=== PATIENT | male | born 1965 | race Caucasian/White ===

== ENCOUNTER 2020-05-16 18:54 | Emergency (ER) | payer OTHER, SELFPAY ==
--- NOTE | ~2020-05-16 | XR_ITS ---
XR tibia fibula LT 2V DATE: 05/16/2020 19:26 INDICATION: Swelling; no injury TECHNIQUE: AP and lateral views COMPARISON: None FINDINGS: Chronic bony ossicles are noted anterior to the anterior tibial tuberosity. There is osteoa rthritic change at the knee joint. No fracture, dislocation, periosteal reaction or bone destruction of the tibia or fibula. IMPRESSION: No acute bony findings Reviewed, dictated and finalized at location A. IMPRESSION: No acute bony findings
[2020-05-16 18:58] VITALS: BP 150/86; PULSE 107; RESP 18; TEMP 37.1; O2SAT 98
--- NOTE | 2020-05-16 19:04 | ED.GENADULT ---
HPI - General Adult General Chief complaint: Extremity Injury, Lower Stated complaint: Left Calf Pain and Swelling Time Seen by Provider: 05/16/20 19:04 Source: patient Mode of arrival: ambulatory Limitations: no limitations History of Present Illness HPI narrative: 55-year-old male patient presents to the emergency department with complaints of left leg swelling that started about 2 days ago. Patient states he has been working out recently. Patient states that this is happened before but typically the swelling lasts a couple of days and then it goes away. Patient states he does have pain at times in the calf increases with walking. Patient noticed swelling from the ankle all the way up to the calf area. Denies any history of blood clots before in the past. Patient states he is on no medications and very rarely goes to the hospital or doctor. Patient denies any chest pain or shortness of breath. Patient denies any injury to the lower leg or the ankle that he is aware of. Related Data Home Medications Medication Instructions Recorded Confirmed No Home Medications 05/16/20 05/16/20 Allergies Allergy/AdvReac Type Severity Reaction Status Date / Time No Known Allergies Allergy Verified 05/16/20 19:01 Review of Systems Review of Systems: Narrative: CONSTITUTIONAL: Denies fever, chills, or sweats. EYES: Denies visual changes, redness, or discharge. ENT: Denies rhinorrhea, congestion, sore throat, or otalgia. CARDIOVASCULAR: Denies chest pain, palpitations, or edema. RESPIRATORY: Denies cough or dyspnea. GASTROINTESTINAL: Denies abdominal pain, nausea, vomiting, or diarrhea. GENITOURINARY: Denies dysuria or hematuria. SKIN: Denies rash or itching. MUSCULOSKELETAL: Denies back pain, joint pain, or myalgia. Positive swelling to left ankle and left calf x2 to 3 days NEUROLOGIC: Denies headache, numbness, or weakness. PSYCHIATRIC: Denies anxiety or depression. PMFSH Social History Social History Smoking status: Never smoker Alcohol intake: current Gender identity (if verbalized by the patient): Male Comments At the time of my signature I agree with nursing past medical history, surgical, social, and family history. There is no relevant family history pertinent to the presenting complaint. Exam Narrative: Exam Narrative: GENERAL: Well-appearing, well-nourished, and in no acute distress. HEAD: Normocephalic, atraumatic. EYES: PERRLA and EOMI. ENT: Nares clear, no rhinorrhea or epistaxis. Mucous membranes moist. NECK: Supple. No lymphadenopathy CHEST: Clear to auscultation. No respiratory distress. HEART: Regular rate and rhythm. No murmur heard. Normal peripheral pulses. ABDOMEN: Soft, nontender, nondistended, normal active bowel sounds. EXTREMITIES: Normal range of motion. Patient does have swelling noted to the left lateral and medial malleolus area. There is some swelling noticed to the calf as compared to the right side with warmth noted behind the calf and slight tenderness on palpation. Patient has good range of motion and can walk with a steady gait. SKIN: Warm, dry, no rash. NEURO: No focal deficits. Alert and oriented x3. Course Reevaluation(s) Reevaluation #1: Spoke with Dr. Juma Farrell about patient. Discussed with him that patient does have a positive d-dimer along with left lower leg swelling, redness and pain. Discussed with Dr. Tapia I was going to order a Doppler for him to have tomorrow morning we are can give him a shot of Lovenox before he leaves tonight. Dr. Farrell is aware the plan of care and states that he will follow-up with the patient. Patient has appointment tomorrow morning at 7:30 AM at the imaging center here at the [facility] to obtain his Doppler. Discussed with patient this plan of care and told him that he needs to take his order along with his discharge paper to the appointment tomorrow morning at 730. Patient verbalize
[2020-05-16 19:27] LABS: Basophils Absolute Auto 0.1 K/mm3 (0.0-0.1); Basophils Percent Auto 0.9 % (0.2-1.2); Eosinophils Absolute Auto 0.3 K/mm3 (0-0.3); Eosinophils Percent Auto 2.2 % (0-4.4); Hematocrit 45.3 % (42.0-52.0); Hemoglobin 15.4 g/dL (14.0-18.0); Immature Granulocyte Absolute 0.06 K/mm3 (0.00-0.031); Immature Granulocyte Percent A 0.5 % (0-0.5); Lymphocytes Absolute Auto 1.83 K/mm3 (0.9-3.2); Lymphocytes Percent Auto 15.6 % (18.3-44.2); Mean Corpuscular Hemoglobin 28.5 pg (26-34); Mean Corpuscular Volume 83.9 fl (80-100); Mean Platelet Volume 9.7 fl (7.4-10.4); Monocytes Absolute Auto 1.2 K/mm3 (0.1-0.6); Monocytes Percent Auto 10.2 % (2.6-8.5); Neutrophils Absolute Auto 8.3 K/mm3 (1.3-6.7); Neutrophils Percent Auto 70.6 % (45.5-73.1); Platelet Count Result 176 k/mm3 (150-375); Red Cell Distribution Width 13.4 % (11.5-14.5); White Blood Count 11.7 K/mm3 (4.5-10.0)
[2020-05-16 19:36] LABS: INR 1.1
[2020-05-16 19:37] LABS: Partial Thromboplastin Time 26.5 SECONDS (22.3-36.8)
[2020-05-16 19:39] LABS: Alanine Aminotransferase 57 U/L (4-50); Albumin Level 4.6 g/dL (3.5-5.1); Alkaline Phosphatase 51 U/L (38-126); Aspartate Amino Transferase 53 U/L (17-59); Bilirubin,Total 0.7 mg/dL (0.2-1.3); Blood Urea Nitrogen 28 mg/dL (9-20); Carbon Dioxide 23 mmol/L (22-30); Chloride 106 mmol/L (98-107); Estimated CRCL calculation 57 ml/min; Estimated Glomerular Filt Rate > 60; Glucose 101 mg/dL (75-110); Potassium 4.1 mmol/L (3.4-5.0); Sodium 138 mmol/L (137-145)
[2020-05-16 19:54] LABS: D Dimer 12.74 ug/mL (<0.48)
[2020-05-16] MEDS: ENOXAPARIN 80 MG/0.8 ML SYRINGE 74 MG SUB-Q (20:40)
[2020-05-16 20:42] VITALS: BP 126/85; PULSE 83; O2SAT 97
== END 2020-05-16 20:45 | disposition home or self-care (01) ==
PROVIDERS: Emergency Provider Nurse Practitioner Family; PCP Internal Medicine
DX: R22.42 Localized swelling, mass and lump, left lower limb (principal)
CPT/HCPCS: 36415; 73590; 80053; 85025; 85380; 85610; 85730; 96372; 99284; J1650

== ENCOUNTER 2020-05-17 07:30 | Outpatient (CLI) | payer OTHER, SELFPAY ==
--- NOTE | ~2020-05-17 | US_ITS ---
US venous doppler [facility] DATE: 05/17/2020 08:26 INDICATION: Left leg swelling and pain for 3 days TECHNIQUE: Real-time and color flow imaging and Doppler analysis COMPARISON: None FINDINGS: Intraluminal thrombus is identified within the mid to distal aspect of one of 2 paired supe rficial femoral veins. Intraluminal thrombus is identified within the popliteal vein, gastrocnemius v ein and one of 2 paired peroneal veins. IMPRESSION: Deep venous thrombosis of one of 2 paired superficial femoral and peroneal veins Dr. Jim telephoned the report of left lower extremity deep venous thrombosis on 05/17/2020 at [address] Cline's voicemail. The report was also called by Dr. Jim to Dr. Cline's exchange at [phone] on 05/17/2020 at 084 9 hours. Reviewed, dictated and finalized at Location [facility]. Reviewed, dictated and finalized at location B. IMPRESSION: Deep venous thrombosis of one of 2 paired superficial femoral and p eroneal veins Dr. Jim telephoned the report of left lower extremity deep venous thrombosis o n 05/17/[address] Cline's voicemail. The report was also called by Dr. Jim to Dr. Cline's exchange at [phone] on 05/17/2020 at 0849 hours.
== END 2020-05-17 07:31 | disposition home or self-care (01) ==
PROVIDERS: PCP Internal Medicine; Visit Provider Internal Medicine
DX: I82.412 Acute embolism and thrombosis of left femoral vein (principal); I82.452 Acute embolism and thrombosis of left peroneal vein
CPT/HCPCS: 93971

== ENCOUNTER → 2020-08-16 14:24 | Outpatient (CLI) | payer OTHER, SELFPAY ==
--- NOTE | ~2020-08-16 | MR_ITS ---
EXAMINATION: MR shoulder RT w con DATE: 08/16/2020 16:17 INDICATION: Right shoulder pain and limited range of motion TECHNIQUE: Magnetic resonance imaging (MRI) of the right shoulder was performed following intra-clifton cular gadolinium contrast injection and without intravenous contrast. Details of the glenohumeral arron nt injection have been dictated separately. Sequences included axial T2-weighted FS FSE, axial T1-we ighted FS FSE, coronal oblique T1-weighted FS FSE, coronal oblique T2-weighted FSE, sagittal T2-weigh darryn FS FSE, sagittal T1-weighted FSE, and ABER (abduction external rotation) T1-weighted FS FSE. COMPARISON: None. FINDINGS: Coracoacromial arch: Type II acromion. The coracoacromial ligament is normal. Moderate acromioclavicular osteoarthritis. Rotator cuff: Mild tendinopathy at the conjoined portion of the supraspinatus and infraspinatus tendons without dis crete tear. The teres minor and subscapularis tendons are normal. Normal rotator cuff muscle bulk an d signal. Biceps tendon, glenoid labrum and glenohumeral cartilage: Long head of the biceps tendon is normal. There is a tear of the superior glenoid labrum beginning po steriorly at the 11:30 position and extending anteriorly to approximately 1:00 position of the labrum and further anteriorly as a partial tear of the superior glenohumeral ligament. Cartilage is normal. Bones and other: Subarticular edema at both sides of the acromioclavicular joint. Marrow signal is otherwise normal. N o fracture or pathologic marrow replacing process. Mild increased fluid signal in the subacromial/sub deltoid bursa consistent with minimal bursitis. IMPRESSION: 1. SLAP tear involving the superior glenoid labrum with associated partial tear of the superior gleno humeral ligament. 2. Mild tendinopathy without discrete tear of the conjoined portions of the supraspinatus and infrasp inatus tendons. 3. Moderate acromioclavicular osteoarthritis. 4. Minimal subacromial/subdeltoid bursitis. Reviewed, dictated and finalized at location A. IMPRESSION: 1. SLAP tear involving the superior glenoid labrum with associated partial tear of the superior glenohumeral ligament. 2. Mild tendinopathy without discrete tear of the conjoined portions of the sup raspinatus and infraspinatus tendons. 3. Moderate acromioclavicular osteoarthritis. 4. Minimal subacromial/subdeltoid bursitis.
--- NOTE | ~2020-08-16 | XR_ITS ---
EXAMINATION: XR fl inj shoulder RT - MR/CT EXAM DATE: 08/16/2020 15:39 INDICATION: Intermittent anterior right shoulder pain. No history of dislocation. TECHNIQUE: A time-out was performed to verify the patient's name, date of , and procedure to b e performed. The procedure including the risks, benefits and alternatives were discussed with the pat ient. Risks discussed included bleeding and infection. The patient understood the risks and agreed to proceed. The skin overlying the right shoulder joint was prepped and draped in usual sterile fashion . Anesthetic was administered with 2 milliliters 1% lidocaine subcutaneously. A 22 G needle was adv anced under fluoroscopic guidance into the joint. A total of 10 mL of 1:200 of 529 mg/mL Multihance, 1:4 lidocaine, and 1:4 Omnipaque 240 was instilled. The needle was removed and the entry site was cleaned and dressed. There were no immediate complications. The DAP for this procedure was 0.08 Gy cm2. The procedure was performed on 08/16/2020. FINDINGS: Real-time fluoroscopy demonstrates the needle and contrast in the right shoulder joint. IMPRESSION: Successful right shoulder joint injection. Reviewed, dictated and finalized at location B.
== END ==
PROVIDERS: Visit Provider Internal Medicine
DX: S49.91XA Unspecified injury of right shoulder and upper arm, initial encounter (principal); S43.431A Superior glenoid labrum lesion of right shoulder, initial encounter; M67.813 Other specified disorders of tendon, right shoulder; M19.011 Primary osteoarthritis, right shoulder
CPT/HCPCS: 23350; 73222; 77002; A9577; Q9966

== ENCOUNTER 2022-05-27 22:25 | Emergency (ER) | payer OTHER, SELFPAY ==
--- NOTE | ~2022-05-27 | CT_ITS ---
EXAMINATION: CT abdomen pelvis w con DATE: 05/28/2022 01:04 INDICATION: Low abdominal pain for 3 days TECHNIQUE: Computed tomography (CT) of the abdomen and pelvis was performed with 100 CC Omnipaque 300 intravenous contrast. Automated exposure control and iterative reconstruction technique were employe d. Exam dose: 477.18 mGy-cm total exam DLP. COMPARISON: None. FINDINGS: Minimal dependent atelectasis at the lower lobes. Cardiomegaly. No pericardial or pleural effusion. Occasional small hypodensities of liver too small to definitively characterize. The gallbladder is pr esent. No bile duct dilatation. No pancreatic mass lesion, calcification or ductal dilatation. Normal splenic size. Normal morphology of the adrenal glands. No renal mass lesion or urinary tract calculus or hydroureteronephrosis. Normal caliber of the abdominal aorta. No intraperitoneal or retroperitoneal or pelvic mass lesion or adenopathy. The urinary bladder and prostate gland are unremarkable. Minimal free fluid in the dependent pelvis. No bowel obstruction. There is haziness of the mesentery which may be due to mesenteric panniculitis. Included skeletal structures are unremarkable. 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 Reviewed, dictated and finalized at location A. IMPRESSION: Haziness of the mesenteric fat which suggests mesenteric panniculi tis Occasional small hepatic hypodensities, too small to definitively characterize
[2022-05-27 22:29] VITALS: BP 140/99; PULSE 82; RESP 18; TEMP 36.6; O2SAT 99
[2022-05-27] MEDS: DICYCLOMINE HCL INJ 20 MG/2 ML VIAL IM (23:48)
[2022-05-27] MEDS: ONDANSETRON INJ 4 MG/2 ML VIAL IV PUSH (23:48)
[2022-05-27] MEDS: SODIUM CHLORIDE 0.9% IV 1,000 ML 999 ML IV CONT (23:48)
[2022-05-28 00:08] LABS: Lactic Acid Reflex 0.9 mmol/L (0.7-2.0)
[2022-05-28 00:09] LABS: Alanine Aminotransferase 92 U/L (6-50); Albumin Level 4.5 g/dL (3.5-5.1); Alkaline Phosphatase 73 U/L (38-126); Anion Gap 5 mmol/L (8-16); Aspartate Amino Transferase 45 U/L (17-59); Basophils Absolute Auto 0.1 K/mm3 (0.0-0.1); Basophils Percent Auto 1.1 % (0.2-1.2); Bilirubin,Total 0.6 mg/dL (0.2-1.3); Blood Urea Nitrogen 25 mg/dL (9-20); Calcium 9.2 mg/dL (8.4-10.2); Carbon Dioxide 27 mmol/L (22-30); Chloride 102 mmol/L (98-107); Eosinophils Absolute Auto 0.2 K/mm3 (0-0.3); Eosinophils Percent Auto 2.3 % (0-4.4); Estimated CRCL calculation 60 ml/min; Estimated Glomerular Filt Rate > 60; Glucose 111 mg/dL (65-110); Hematocrit 47.2 % (42.0-52.0); Immature Granulocyte Absolute 0.04 K/mm3 (0.00-0.031); Immature Granulocyte Percent A 0.4 % (0-0.5); Lipase 88 U/L (23-300); Lymphocytes Percent Auto 14.6 % (18.3-44.2); Mean Corpuscular HGB Conc 33.9 g/dl (32-36); Mean Corpuscular Hemoglobin 28.5 pg (26-34); Monocytes Absolute Auto 0.9 K/mm3 (0.1-0.6); Monocytes Percent Auto 8.4 % (2.6-8.5); Neutrophils Absolute Auto 7.5 K/mm3 (1.3-6.7); Neutrophils Percent Auto 73.2 % (45.5-73.1); Platelet Count Result 207 k/mm3 (150-375); Potassium 4.1 mmol/L (3.4-5.0); Red Blood Count 5.62 M/mm3 (4.6-6.20); Red Cell Distribution Width 13.2 % (11.5-14.5); Sodium 134 mmol/L (137-145); White Blood Count 10.3 K/mm3 (4.5-10.0)
--- NOTE | 2022-05-28 00:41 | ED.GENADULT ---
HPI - General Adult General Chief complaint: Abdominal Pain Stated complaint: severe abd pain Time Seen by Provider: 05/27/22 22:43 History of Present Illness HPI narrative: Patient is a 57-year-old gentleman who presents the emergency department with chief complaint of abdominal pain. Patient reports for the last 3 days has been having pain throughout his abdomen the patient reports is not improved by anything nor is it worsened by anything. Patient reports it feels as though there is a bloating like sensation and has been passing more gas than normal. Patient reports no prior surgical history of the abdomen. Patient states he is had no vomiting but has had some mild nausea. Related Data Home Medications Medication Instructions Recorded Confirmed No Home Medications 05/27/22 05/27/22 Allergies Allergy/AdvReac Type Severity Reaction Status Date / Time No Known Allergies Allergy Verified 05/27/22 22:25 Review of Systems Review of Systems: A 10 system review of systems was completed on the patient and is negative except for what is stated in the HPI. Nursing and ancillary documentation was reviewed. [facility] Past Medical History Medical History DVT (deep venous thrombosis) History of deep venous thrombosis (DVT) of distal vein of left lower extremity Social History Social History Smoking status: Never smoker Alcohol intake: current Gender identity (if verbalized by the patient): Male Exam Narrative: GENERAL: Well-appearing, well-nourished, and in no acute distress. HEAD: Normocephalic, atraumatic. EYES: PERRLA and EOMI. ENT: Nares clear, no rhinorrhea or epistaxis. Mucous membranes moist. NECK: Supple. CHEST: Clear to auscultation. No respiratory distress. HEART: Regular rate and rhythm. No murmur heard. Normal peripheral pulses. ABDOMEN: Soft, diffusely tender to palpation worse on the right side nondistended, normal active bowel sounds. EXTREMITIES: Normal range of motion. No edema. SKIN: Warm, dry, no rash. NEURO: No focal deficits. Alert and oriented x3. PSYCH: Normal mood and affect. Course Course Emergency Course: CT scan showed evidence of a large stool burden no evidence of acute intra-abdominal pathology. The patient will be given a dose of magnesium citrate to facilitate elimination of the stool burden Vital Signs Vital signs: Vital Signs Temperature 36.6 C 05/27/22 22:29 Pulse Rate 82 05/27/22 22:29 Respiratory Rate 18 05/27/22 22:29 Blood Pressure 140/99 H 05/27/22 22:29 Pulse Oximetry 99 05/27/22 22:29 Temperature 36.6 C 05/27/22 22:29 Pulse Rate 82 05/27/22 22:29 Respiratory Rate 18 05/27/22 22:29 Blood Pressure 140/99 H 05/27/22 22:29 Pulse Oximetry 99 05/27/22 22:29 Medical Decision Making Vital Signs Vital Signs: Vital Signs Temperature 36.6 C 05/27/22 22:29 Pulse Rate 82 05/27/22 22:29 Respiratory Rate 18 05/27/22 22:29 Blood Pressure 140/99 H 05/27/22 22:29 Pulse Oximetry 99 05/27/22 22:29 Temperature 36.6 C 05/27/22 22:29 Pulse Rate 82 05/27/22 22:29 Respiratory Rate 18 05/27/22 22:29 Blood Pressure 140/99 H 05/27/22 22:29 Pulse Oximetry 99 05/27/22 22:29 Lab Data Result diagrams: 05/27/22 23:53 05/27/22 23:53 Labs: Lab Results 05/27/22 05/27/22 05/27/22 Range/Units 23:53 23:53 23:53 WBC 10.3 H (4.5-10.0) K/mm3 RBC 5.62 (4.6-6.20) M/mm3 Hgb 16.0 (14.0-18.0) g/dL Hct 47.2 (42.0-52.0) % MCV 84.0 (80-100) fl MCH 28.5 (26-34) pg MCHC 33.9 (32-36) g/dl RDW 13.2 (11.5-14.5) % Plt Count 207 (150-375) k/mm3 MPV 10.0 (7.4-10.4) fl Immature Gran % (Auto) 0.4 (0-0.5) % Neut % (Auto) 73.2 H (45.5-73.1) % Lymph % (Auto) 14.6 L (18.3-44.2) % [place] % (Auto) 8.4 (
[2022-05-28 02:04] LABS: Appearance Urine Clear (Clear); Bilirubin Urine Negative (Negative); Blood Urine Negative (Negative); Color Urine Yellow (Yellow); Glucose Urine UA Negative (Negative); Ketones Urine Negative (Negative); Leukocyte Esterase Ur Negative LEU/UL (Negative); Nitrate Urine Negative (Negative); Protein Urine Negative (Negative); Specific Grav Ur <= 1.005 (1.001-1.035); Urobilinogen Urine 0.2 mg/dL (<2.0)
[2022-05-28 02:14] LABS: Add Urine Microscopic? NO; Mucus Urine Rare /lpf; RBC Urine 0-2 /hpf (0-2)
[2022-05-28] MEDS: MAGNESIUM CITRATE 300 ML BTL PO (03:42)
== END 2022-05-28 03:45 | disposition home or self-care (01) ==
PROVIDERS: Emergency Provider Emergency Medicine; PCP Internal Medicine
DX: K59.00 Constipation, unspecified (principal); R10.84 Generalized abdominal pain; Z86.718 Personal history of other venous thrombosis and embolism
CPT/HCPCS: 36415; 74177; 80053; 81003; 83605; 83690; 83735; 85025; 96361; 96372; 96374; 99284; A9270; J0500; J2405; J7030; Q9967

== ENCOUNTER 2022-05-29 17:17 | Inpatient (IN) | payer OTHER, SELFPAY ==
[2022-05-29] VITALS (20 sets, daily range): BP systolic 124–159; BP diastolic 77–105; PULSE 78; RESP 16; TEMP 36.3; O2SAT 92–99
--- NOTE | ~2022-05-29 | XR_ITS ---
EXAM: XR abdomen/kub 1V DATE: 05/30/2022 17:48 HISTORY: eval for obstruction . COMPARISON: CT abdomen and pelvis 05/29/2022. FINDINGS: Clear lung bases. Single loop of air-filled dilated small bowel in the left abdomen. No or ganomegaly. No abnormal abdominal calcification. Regional bones and soft tissues normal for age. IMPRESSION: Mildly dilated left abdominal small bowel loop, likely reflecting the previously reported small bowel venous ischemia. Reviewed, dictated and finalized at location K. IMPRESSION: Mildly dilated left abdominal small bowel loop, likely reflecting t he previously reported small bowel venous ischemia.
--- NOTE | ~2022-05-29 | CT_ITS ---
EXAMINATION: CT abdomen pelvis w con DATE: 05/29/2022 20:47 INDICATION: worsening abd pain TECHNIQUE: Computed tomography (CT) of the abdomen and pelvis was performed with 100 mL Omnipaque-300 intravenous contrast. Automated exposure control and iterative reconstruction technique were employe d. The dose-length product was 464.87 mGy-cm. COMPARISON: 05/28/2022. FINDINGS: Lower thorax: Mild cardiomegaly. Coronary artery calcification. Liver: Scattered hypodensities that are too small to characterize. Heterogeneous enhancement in the r ight lobe. Narrowed right portal vein, with decreased to absent flow. Focal eccentric filling defect at the portal vein bifurcation. Biliary/Gallbladder: Gallbladder is normal. No bile duct dilation. Pancreas: No mass or duct dilation. Spleen: Normal. Adrenals:No mass. Kidneys: No mass, stone, or hydronephrosis. GI tract: Several loops of dilated small bowel in the left abdomen, with significant surrounding infl ammatory change, wall edema, and interloop fluid. Appendix not visualized. Mesentery/Peritoneum: Small volume mesenteric, perihepatic, paracolic gutter and deep pelvic fluid. M id and left upper abdominal mesenteric edema and lymphadenopathy. Thrombosis in the superior mesenter ic vein extending into the confluence, with dilation and inflammatory change extending into multiple mesenteric branches. Retroperitoneum: No mass. Pelvis: Pelvic organs are within normal limits. Soft Tissues: Soft tissues and body wall unremarkable. Bones: No acute osseous finding. 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 Small volume ascites. Mesenter ic lymphadenopathy. Reviewed, dictated and finalized at location K. 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 Small volume ascites. Mesenteric lymphadenopathy.
--- NOTE | ~2022-05-29 | XR_ITS ---
EXAM: XR abdomen/kub 1V DATE: 05/29/2022 18:15 HISTORY: N, MID ABDOMINAL PAIN, CONSTIPATION X 2 DAYS . COMPARISON: CT abdomen and pelvis, 05/28/2022. FINDINGS: Clear lung bases. Normal bowel gas pattern. No organomegaly. No abnormal abdominal calcifi cation. Regional bones and soft tissues normal for age. IMPRESSION: No radiographic evidence of obstruction or ileus. Reviewed, dictated and finalized at location K.
[2022-05-29 17:35] LABS: Basophils Absolute Auto 0.1 K/mm3 (0.0-0.1); Basophils Percent Auto 0.6 % (0.2-1.2); Eosinophils Absolute Auto 0.2 K/mm3 (0-0.3); Eosinophils Percent Auto 1.4 % (0-4.4); Hematocrit 46.8 % (42.0-52.0); Hemoglobin 15.6 g/dL (14.0-18.0); Immature Granulocyte Absolute 0.03 K/mm3 (0.00-0.031); Immature Granulocyte Percent A 0.3 % (0-0.5); Lymphocytes Absolute Auto 1.18 K/mm3 (0.9-3.2); Lymphocytes Percent Auto 10.4 % (18.3-44.2); Mean Corpuscular HGB Conc 33.3 g/dl (32-36); Mean Corpuscular Hemoglobin 28.4 pg (26-34); Mean Corpuscular Volume 85.1 fl (80-100); Mean Platelet Volume 9.5 fl (7.4-10.4); Monocytes Absolute Auto 0.8 K/mm3 (0.1-0.6); Monocytes Percent Auto 6.8 % (2.6-8.5); Neutrophils Absolute Auto 9.1 K/mm3 (1.3-6.7); Neutrophils Percent Auto 80.5 % (45.5-73.1); Platelet Count Result 209 k/mm3 (150-375); Red Cell Distribution Width 12.7 % (11.5-14.5); White Blood Count 11.3 K/mm3 (4.5-10.0)
[2022-05-29 17:44] LABS: Alanine Aminotransferase 69 U/L (6-50); Albumin Level 4.4 g/dL (3.5-5.1); Alkaline Phosphatase 73 U/L (38-126); Anion Gap 6 mmol/L (8-16); Aspartate Amino Transferase 42 U/L (17-59); Bilirubin,Total 0.7 mg/dL (0.2-1.3); Blood Urea Nitrogen 27 mg/dL (9-20); Calcium 9.1 mg/dL (8.4-10.2); Carbon Dioxide 29 mmol/L (22-30); Chloride 99 mmol/L (98-107); Estimated CRCL calculation 66 ml/min; Estimated Glomerular Filt Rate > 60; Glucose 134 mg/dL (65-110); Lipase 95 U/L (23-300); Potassium 4.1 mmol/L (3.4-5.0); Sodium 134 mmol/L (137-145)
[2022-05-29 17:49] LABS: Appearance Urine Clear (Clear); Bilirubin Urine 1+ (Negative); Blood Urine Negative (Negative); Color Urine Yellow (Yellow); Glucose Urine UA Negative (Negative); Ketones Urine Negative (Negative); Leukocyte Esterase Ur Negative LEU/UL (Negative); Nitrate Urine Negative (Negative); Protein Urine Negative (Negative); Specific Grav Ur >= 1.030 (1.001-1.035); Urobilinogen Urine 0.2 mg/dL (<2.0); pH Urine 5.5 (5.0-9.0)
[2022-05-29 17:53] LABS: Mucus Urine Few /lpf; RBC Urine 0-2 /hpf (0-2); WBC Urine 0-3 /hpf
[2022-05-29 17:57] LABS: Add Urine Microscopic? YES
[2022-05-29] MEDS: SODIUM CHLORIDE 0.9% IV 1,000 ML 999 ML IV CONT (19:39)
--- NOTE | 2022-05-29 20:02 | ED.ABDPAIN ---
HPI - Abdominal Pain General Chief Complaint: Abdominal Pain <MENDEZ Dumont Last Filed: 05/30/22 02:28> Stated Complaint: Abdominal Pain <MENDEZ Dumont Last Filed: 05/30/22 02:28> Time Seen by Provider: 05/29/22 19:17 <Brigette Yanez PA-C - Last Filed: 05/30/22 02:28> Source: patient <Brigette Armas MENDEZ Yanez Last Filed: 05/30/22 02:28> Mode of arrival: ambulatory <MENDEZ Dumont Last Filed: 05/30/22 02:28> Limitations: no limitations <MENDEZ Dumont Last Filed: 05/30/22 02:28> History of Present Illness HPI narrative: This is a 57-year-old male that presents to the emergency department for worsening abdominal pain. Was evaluated yesterday for same. CT scan was without concerning findings. He presents today for some worsening pain. Denies fever, vomiting, or diarrhea. <Brigette Yanez PA-C - Last Filed: 05/30/22 02:28> Related Data Home Medications: Home Medications Medication Instructions Recorded Confirmed No Home Medications 05/27/22 05/27/22 <Brigette Yanez PA-C - Last Filed: 05/30/22 02:28> Allergies/Adverse Reactions: Allergies Allergy/AdvReac Type Severity Reaction Status Date / Time No Known Allergies Allergy Verified 05/27/22 22:25 <MENDEZ Dumont Last Filed: 05/30/22 02:28> Review of Systems Review of Systems: CONSTITUTIONAL: Denies fever GASTROINTESTINAL: Reports abdominal pain, nausea. Denies vomiting, or diarrhea. GENITOURINARY: Denies dysuria or hematuria. <MENDEZ Dumont Last Filed: 05/30/22 02:28> All systems reviewed & are unremarkable except as noted in HPI and below <MENDEZ Dumont Last Filed: 05/30/22 02:28> PMFSH Past Medical History Medical History: Medical History DVT (deep venous thrombosis) History of deep venous thrombosis (DVT) of distal vein of left lower extremity <Brigette Yanez PA-C - Last Filed: 05/30/22 02:28> Social History Social History: Social History (Updated 05/29/22 @ 20:03 by Brigette Yanez PA-C) Smoking status: Never smoker Alcohol intake: current Substance use: never Gender identity (if verbalized by the patient): Male <Brigette Yanez PA-C - Last Filed: 05/30/22 02:28> Exam Narrative: GENERAL: Well-appearing, well-nourished, and in no acute distress. HEAD: Normocephalic, atraumatic. EYES: EOMI. CHEST: Clear to auscultation. No respiratory distress. No wheezes rales or rhonchi HEART: Regular rate and rhythm. No murmur heard. Normal peripheral pulses. ABDOMEN: Soft, nondistended, normal active bowel sounds. Tender to palpation throughout the abdomen, without guarding EXTREMITIES: Normal range of motion. No edema. SKIN: Warm, dry, no rash. NEURO: No focal deficits. Alert and oriented x3. PSYCH: Normal mood and affect <Brigette Yanez PA-C - Last Filed: 05/30/22 02:28> Course [employer]/PA Physician Supervision I personally seen and evaluated the patient and was directly involved in the medical decision management the advanced practice provider. Patient is a 57-year-old gentleman who was seen in the emergency department several days ago with abdominal pain at that time had a normal CT scan and normal lactate patient was discharged home and returned with worsening pain Exam the patient is awake alert no acute distress after receiving pain medications CT scan today shows evidence of a thrombus in the mesenteric artery. Patient was started on anticoagulation the case was discussed initially with general surgery locally recommended that the patient be transferred to a higher level of care. Patient was accepted at [facility] <Chetan Herrera MD - Last Filed: 05/30/22 05:36> Consultations Consultation #1: Spoke with hospitalist at [facility], Dr. Otto, who accepts admission. Patient will be placed on a waiting list. <Brigette Gupta
[2022-05-29 21:41] LABS: Lactic Acid Reflex 0.8 mmol/L (0.7-2.0)
[2022-05-29] MEDS: PANTOPRAZOLE SODIUM IV 40 MG VIAL IV PUSH (21:48)
[2022-05-29] MEDS: ONDANSETRON INJ 4 MG/2 ML VIAL IV PUSH (21:48)
[2022-05-29] MEDS: MORPHINE SULFATE (*CRX) 4 MG/ML INJ IV PUSH (21:48)
--- NOTE | 2022-05-29 23:22 | PC.NURSE ---
Patient accepted at [facility]. On waitlist for bed.
[2022-05-29 23:26] LABS: INR 1.2; Prothrombin Time 14.3 Seconds (11.1-14.7)
[2022-05-29 23:27] LABS: Partial Thromboplastin Time 28.9 SECONDS (22.3-36.8)
[2022-05-29] MEDS: HEPARIN SOD/D5W 100 UNITS/ML 25,000 UNITS/250 ML BAG 12 UNITS IV CONT (23:54)
[2022-05-30] VITALS (24 sets, daily range): BP systolic 113–162; BP diastolic 63–84; PULSE 64–74; RESP 16–18; TEMP 36.6; O2SAT 93–99; BMI 28.8
[2022-05-30] MEDS: HEPARIN SODIUM 5,000 UNITS/ML VIAL 5500 UNITS IV PUSH (00:08)
[2022-05-30] MEDS: MORPHINE SULFATE (*CRX) 4 MG/ML INJ IV PUSH ×5 (02:21→21:16)
[2022-05-30] MEDS: ONDANSETRON INJ 4 MG/2 ML VIAL IV PUSH ×2 (04:27→06:23)
[2022-05-30] MEDS: SODIUM CHLORIDE 0.9% IV 1,000 ML 125 ML IV CONT (04:30)
--- NOTE | 2022-05-30 06:42 | PC.NURSE ---
Patient still on waitlist for bed at [facility] per [facility] at [facility].
[2022-05-30 07:49] LABS: Partial Thromboplastin Time 128.9 SECONDS (22.3-36.8)
--- NOTE | 2022-05-30 11:59 | PC.NURSE ---
attempted to call report, unable to take report
[2022-05-30 14:36] LABS: Partial Thromboplastin Time 67.2 SECONDS (22.3-36.8)
[2022-05-30] MEDS: HEPARIN SODIUM 5,000 UNITS/ML VIAL 3000 UNITS IV PUSH (15:09)
[2022-05-30 15:20] LABS: Basophils Absolute Auto 0.1 K/mm3 (0.0-0.1); Basophils Percent Auto 0.3 % (0.2-1.2); Eosinophils Percent Auto 0.1 % (0-4.4); Hematocrit 41.5 % (42.0-52.0); Hemoglobin 13.8 g/dL (14.0-18.0); Immature Granulocyte Absolute 0.07 K/mm3 (0.00-0.031); Immature Granulocyte Percent A 0.4 % (0-0.5); Lymphocytes Absolute Auto 1.08 K/mm3 (0.9-3.2); Lymphocytes Percent Auto 6.9 % (18.3-44.2); Mean Corpuscular HGB Conc 33.3 g/dl (32-36); Mean Corpuscular Hemoglobin 28.3 pg (26-34); Mean Corpuscular Volume 85.2 fl (80-100); Mean Platelet Volume 9.6 fl (7.4-10.4); Monocytes Absolute Auto 1.1 K/mm3 (0.1-0.6); Monocytes Percent Auto 7.2 % (2.6-8.5); Neutrophils Absolute Auto 13.2 K/mm3 (1.3-6.7); Neutrophils Percent Auto 85.1 % (45.5-73.1); Platelet Count Result 186 k/mm3 (150-375); Red Blood Count 4.87 M/mm3 (4.6-6.20); White Blood Count 15.6 K/mm3 (4.5-10.0)
[2022-05-30 15:29] LABS: Lactic Acid Reflex 0.9 mmol/L (0.7-2.0)
[2022-05-30 17:15] LABS: Partial Thromboplastin Time 155.6 SECONDS (22.3-36.8)
[2022-05-30 18:26] LABS: Basophils Absolute Auto 0.1 K/mm3 (0.0-0.1); Basophils Percent Auto 0.5 % (0.2-1.2); Eosinophils Absolute Auto 0.1 K/mm3 (0-0.3); Eosinophils Percent Auto 0.3 % (0-4.4); Hematocrit 42.4 % (42.0-52.0); Hemoglobin 14.3 g/dL (14.0-18.0); Immature Granulocyte Absolute 0.04 K/mm3 (0.00-0.031); Immature Granulocyte Percent A 0.3 % (0-0.5); Lymphocytes Percent Auto 11.9 % (18.3-44.2); Mean Corpuscular HGB Conc 33.7 g/dl (32-36); Mean Corpuscular Hemoglobin 28.7 pg (26-34); Mean Corpuscular Volume 85.1 fl (80-100); Mean Platelet Volume 9.7 fl (7.4-10.4); Monocytes Absolute Auto 1.1 K/mm3 (0.1-0.6); Neutrophils Absolute Auto 12.1 K/mm3 (1.3-6.7); Platelet Count Result 193 k/mm3 (150-375); Red Blood Count 4.98 M/mm3 (4.6-6.20); Red Cell Distribution Width 13.1 % (11.5-14.5); White Blood Count 15.1 K/mm3 (4.5-10.0)
[2022-05-30 19:11] LABS: Alanine Aminotransferase 44 U/L (6-50); Albumin Level 3.7 g/dL (3.5-5.1); Alkaline Phosphatase 58 U/L (38-126); Anion Gap 6 mmol/L (8-16); Aspartate Amino Transferase 26 U/L (17-59); Bilirubin,Total 0.6 mg/dL (0.2-1.3); Blood Urea Nitrogen 17 mg/dL (9-20); Calcium 8.5 mg/dL (8.4-10.2); Carbon Dioxide 26 mmol/L (22-30); Chloride 100 mmol/L (98-107); Estimated CRCL calculation 73 ml/min; Estimated Glomerular Filt Rate > 60; Glucose 127 mg/dL (65-110); Potassium 4.2 mmol/L (3.4-5.0); Sodium 132 mmol/L (137-145)
[2022-05-30] MEDS: HEPARIN SOD/D5W 100 UNITS/ML 25,000 UNITS/250 ML BAG 12 UNITS IV CONT (19:21)
--- NOTE | 2022-05-30 19:35 | PM.IMHP ---
H&P: HPI History of Present Illness Date/Time: 05/30/22 19:35 Chief Complaint: Abdominal pain. Narrative: This is a very pleasant 57-year-old male with history of left leg DVT who presented to the emergency department via private vehicle from home last evening for evaluation of abdominal pain. He developed diffuse, mild abdominal discomfort last which has been pretty persistent and in fact he was seen in the emergency department on Sunday night (05/27/2022) for evaluation. At that time he complained of a bloating sensation and a CT of the abdomen and pelvis showed evidence of a large stool burden and he was given a dose of magnesium citrate and was discharged home. He had some small bowel movements thereafter and just yesterday he reports passing 2 large stools. 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 He was started on a heparin drip and transfer was initiated to [facility] where he is currently on their waiting list. At this time he is being admitted to the hospitalist service pending transfer as he has been in the ER for nearly 24 hours. He continues to have pretty constant abdominal discomfort but it has been manageable and in fact he has been able to have clear liquids and these have not made his pain worse. He has not had any bowel movements since arrival and he has not noticed any blood in his stools. He also denies nausea and vomiting. He has no known personal or family history of hypercoagulable disorders and it seems as though his clots have been unprovoked. His primary care provider did a malignancy screening which came back negative (normal PSA and negative Cologuard). Review of Systems Review of Systems: Twelve systems were reviewed. His tested positive for COVID last month he had some mild congestion though he was never tested. He is not having any congestion at this time and he also denies sore throat, cough, and shortness of breath. No fever, chills, or sweats. Weight has remained stable. No chest pain or shortness of breath. He sees a vein specialist in [facility] for his DVT, he was taken off of anticoagulation about a year ago. Except as documented, all other systems were reviewed and are negative. [facility] Past Medical History Medical History (Updated 05/30/22 @ 23:58 by Mala Nicole PA-C) Deep vein thrombosis of left lower extremity (05/2020) Surgical History Surgical History (Updated 05/30/22 @ 23:47 by Mala Nicole PA-C) No history of previous surgery Family History Family History Mother Hypertension Diabetes mellitus Father Hypertension Diabetes mellitus Social History Social History (Updated 05/30/22 @ 23:47 by Mala Nicole PA-C) Social History: Surrogate medical decision maker: Jelena Argueta, spouse. Code status: Full code. Smoking status: Never smoker Alcohol intake: current Drinks per week: 2 Substance use: never Substance use type: does not use Living arrangements: with family Occupation/Education: occupation Additional occupation/education comments: social sciences lecturer at [employer]. Spiritual care concerns: No Meds Home Medications and Allergies Home Medications Medication Instructions Recorded Confirmed Type Adult Aspirin EC Low Strength 81 mg PO DAILY 05/30/22 05/30/22 History multivitamin with minerals-folic 1 tablet PO DAILY 05/30/22 05/30/22 History acid 0.4 mg tablet Allergies Allergy/AdvReac Type Severity Reaction Status Date / Time No Known Allergies Allergy Verified 05/27/22 22:25 Vital Signs Vital Signs - 24 hr 05/29/22 19:36 05/29/22 19:38 05/29/22 1
--- NOTE | 2022-05-30 20:29 | ADMGEN ---
This patient, Romaine Argueta, was admitted to Medical Room 241-01. Patient/family oriented to hospital policies and general routines including ID bracelet, bed and alarms, visiting hours, pain management, procedures, bathroom and other care routines, personal items, smoking policy, room service/diet, and visiting hours. Information on how to activate the Rapid Response Team has been discussed. Patient/Family are encouraged to report perceived risks to care and to ask questions if they do not understand what they are told or what they should do.
[2022-05-30 20:48] LABS: SARS-CoV-2 RNA PCR Negative
[2022-05-30 22:56] LABS: Partial Thromboplastin Time 105.9 SECONDS (22.3-36.8)
[2022-05-31 05:13] LABS: Hematocrit 39.4 % (42.0-52.0); Hemoglobin 13.5 g/dL (14.0-18.0); Mean Corpuscular HGB Conc 34.3 g/dl (32-36); Mean Corpuscular Hemoglobin 28.7 pg (26-34); Mean Corpuscular Volume 83.8 fl (80-100); Mean Platelet Volume 10.1 fl (7.4-10.4); Platelet Count Result 191 k/mm3 (150-375); White Blood Count 12.7 K/mm3 (4.5-10.0)
[2022-05-31 05:22] VITALS: BP 117/61; PULSE 72; RESP 16; TEMP 36.6; O2SAT 96
[2022-05-31 05:23] LABS: Partial Thromboplastin Time 91.3 SECONDS (22.3-36.8)
[2022-05-31 05:24] LABS: Alanine Aminotransferase 35 U/L (6-50); Albumin Level 3.2 g/dL (3.5-5.1); Alkaline Phosphatase 58 U/L (38-126); Anion Gap 1 mmol/L (8-16); Aspartate Amino Transferase 31 U/L (17-59); Bilirubin,Total 0.7 mg/dL (0.2-1.3); Blood Urea Nitrogen 16 mg/dL (9-20); Calcium 8.8 mg/dL (8.4-10.2); Carbon Dioxide 32 mmol/L (22-30); Chloride 102 mmol/L (98-107); Estimated CRCL calculation 66 ml/min; Estimated Glomerular Filt Rate > 60; Glucose 83 mg/dL (65-110); Magnesium 2.1 mg/dL (1.6-2.3); Sodium 135 mmol/L (137-145)
--- NOTE | 2022-05-31 10:24 | PM.CNGS ---
Assessment and Plan Assessment and plan (1) Superior mesenteric vein thrombosis: Code(s): K55.069 - Acute infarction of intestine, part and extent unspecified Status: Acute Assessment and Plan: I have reviewed the CT images and discussed the findings with the patient. He has evidence of superior mesenteric vein thrombosis that does not appear to be provoked by any particular intra-abdominal process. Most common intra-abdominal cause would be pancreatitis or other inflammatory disorder. He does have a history of DVT in his leg which raises suspicion for hypercoagulable state. He will definitely benefit from hematologic workup in the future. I agree with current plan for anticoagulation with heparin drip and eventual transition to oral anticoagulation. Will plan to repeat CBC and lactic acid level tomorrow morning. Continue with serial abdominal exams. Could consider repeat CT to evaluate for any worsening signs of bowel ischemia. Currently patient has no peritoneal signs and pain is improving. Will plan to advance diet tomorrow if labs are improving. (2) Portal vein thrombosis: Code(s): I81 - Portal vein thrombosis Status: Acute (3) Incarcerated umbilical hernia: Code(s): K42.0 - Umbilical hernia with obstruction, without gangrene Status: Acute Assessment and Plan: Patient does have a small supraumbilical hernia that does cause some tenderness to palpation. Discussed with patient that this is not an urgent condition to treat at this time but could consider elective repair in the future. (4) Generalized abdominal pain: Code(s): R10.84 - Generalized abdominal pain Status: Acute (5) History of deep venous thrombosis (DVT) of distal vein of left lower extremity: Code(s): Z86.718 - Personal history of other venous thrombosis and embolism Status: Acute History of Present Illness Consult details Consult date: 05/31/22 Reason for consult: other (Superior mesenteric vein thrombosis) Requesting physician: Mala Nicole PA-C Narrative: This is a 57-year-old man who presented to the emergency department on 05/28 and 05/29 with complaints generalized abdominal pain. Initial CT done on 05/28 showed mesenteric panniculitis moderate amount of stool throughout colon. He was given a dose of magnesium citrate and was discharged from the emergency department on 05/28. He returned on 05/29 with worsening pain. Repeat CT showed evidence of bowel wall edema and superior mesenteric vein thrombosis and partial portal vein thrombosis. He reports no inciting factors other than possible COVID within the past month. He denies history of pancreatitis and denies any heavy alcohol use. Does have a prior history of DVT in his leg about 2 years ago and states this might have been related to COVID at that time as well. He never had any further hypercoagulable workup after completing the course anticoagulation. He has no family history of hypercoagulable state. He has had couple bowel movements 2 days ago but none since. He is passing flatus and denies any nausea or vomiting. He did have some nausea and vomiting when he initially presented to the ED on 05/28. He states that his pain is much better than it was 3 days ago. He has not required pain meds nearly as often in states that he can probably get by with just taking Tylenol at this point. He has been on clear liquids since yesterday and is tolerating this. Review of Systems Review of Systems: All systems reviewed & are unremarkable except as noted in HPI and below Constitutional: Constitutional: Denies chills and Denies fever(s) Eyes: Eyes: Denies change in vision ENT: Denies hearing loss, Denies neck pain and Denies sore throat Cardiovascular: Cardiovascular: Denies chest pain and Denies dyspnea Respiratory: Respiratory: Denies cough, Denies dyspnea and Denies wheezing Gastrointestinal: Gastrointestinal: Reports as per HPI
--- NOTE | 2022-05-31 11:28 | PM.IMPN ---
Progress Note: A&P Assessment and Plan (1) Superior mesenteric vein thrombosis: Code(s): K55.069 - Acute infarction of intestine, part and extent unspecified Status: Acute Assessment and Plan: Precipitating etiology is not clear. It is possible that he has a hereditary hypercoagulable disorder given history of unprovoked left leg DVT though he has no known family history of such. He possibly had COVID last month though he was negative for SARS-CoV-2 by PCR today. There is no other pathology in the abdomen to suggest another etiology. Malignancy screening as above was negative. At this time he has been started on a heparin drip and he has been accepted in transfer to [facility] though they do not anticipate having a bed for many days. The ED physician spoke consulted with Dr. Chad Lima, vascular surgeon, and he does not feel there would be any indication for intervention and recommends heparin drip and conservative monitoring. While there is some evidence of venous bowel ischemia on imaging, he has not had any bloody stools, his vital signs are stable, and lactic acid level is well within normal limits. Dr. Badillo (general surgery) has agreed to consult on the patient awaiting transfer and his input is appreciated. 05/31: Continue heparin drip, will advance diet as tolerated since all symptoms are resolved, anticipate patient will be able to be transitioned to oral anticoagulation and discharged prior to transfer being completed, will need outpatient hypercoagulable workup per Hematology (2) Portal vein thrombosis: Code(s): I81 - Portal vein thrombosis Status: Acute Assessment and Plan: CT of the abdomen also shows a subacute/chronic right portal vein thrombosis. (3) Elevated blood pressure reading without diagnosis of hypertension: Code(s): R03.0 - Elevated blood-pressure reading, without diagnosis of hypertension Status: Acute Assessment and Plan: Initially elevated on arrival, possibly due to pain as his blood pressures have improved. Continue to monitor closely and initiate antihypertensives depending on how he trends. 05/31: Blood pressure stable (4) Mild cardiomegaly: Code(s): I51.7 - Cardiomegaly Status: Acute Assessment and Plan: Noted on CT scan. Echocardiogram ordered for a.m. 05/31: Echo report pending Plan DVT prophylaxis with heparin drip add PPI daily for GI prophylaxis full code Subjective Date/time seen: 05/31/22 11:28 Interval history: Patient sitting up, resting comfortably. No overnight events noted.? No chest pain or shortness of breath.? No nausea, vomiting or diarrhea.? No fevers or chills. Review of Systems Review of Systems: ? 12 point review of systems was assessed and was negative except as noted in the HPI Exam Narrative: ?General:??No acute distress, alert and oriented per baseline HEENT:? Atraumatic, normocephalic, mucous membranes moist CV:? Regular rate and rhythm, S1, S2?no murmurs rubs or gallops noted Lungs:? Clear to auscultation bilaterally, no rales or crackles noted, no wheezes, good air entry Abdomen:? Soft, nontender, nondistended Extremities:? Normal to inspection Skin:? No rashes noted, no lesions or wounds seen Psych:? Euthymic, normal affect ?Neuro:? Cranial nerves 2-12 grossly intact, strength +5/5 upper and lower extremities bilaterally Objective Data Vital Signs Vital Signs: Vital Signs - 24 hr 05/30/22 13:57 05/30/22 20:38 05/30/22 21:09 Temperature 97.8 F Pulse Rate 72 74 Respiratory Rate 18 16 Blood Pressure 133/81 136/78 Pulse Oximetry 96 99 Oxygen Delivery Room Air 05/31/22 05:22 Temperature 97.9 F Pulse Rate 72 Respiratory Rate 16 Blood Pressure 117/61 Pulse Oximetry 96 Oxygen Delivery Intake/Output Intake/Output: Intake & Output 05/28/22 05/29/22 05/30/22 05/31/22 23:59 23:59 23:59 23:59 Intake Total 1100 1250 60
[2022-05-31] MEDS: HEPARIN SOD/D5W 100 UNITS/ML 25,000 UNITS/250 ML BAG 12 UNITS IV CONT (13:48)
[2022-05-31] MEDS: PANTOPRAZOLE SODIUM IV 40 MG VIAL IV PUSH (14:10)
[2022-05-31 14:45] VITALS: BP 118/66; PULSE 68; RESP 18; TEMP 37.1; O2SAT 96
[2022-05-31 20:16] VITALS: BP 121/77; PULSE 69; RESP 14; TEMP 36.4; O2SAT 97
--- NOTE | 2022-05-31 23:58 | ECHO_ITS ---
Patient Info Name: Romaine Argueta Age: 57 years : 1965 Gender: Male Ht: 66 in Wt: 178 lbs BSA: 1.96 m2 HR: 70 bpm BP: 117 / 61 mmHg Heart Rhythm: Sinus Rhythm Exam Date: 05/31/2022 9:30 AM Exam Location: [facility] Patient Status: Inpatient Admit Date: 05/30/2022 Staff Ordering Physician: Mala Nicole PA-C Food Taster: Adriel Cain RDCS, RT Attending Provider: Emilia Sanchez DO Referring Physician: Corey LAWLER; Exam Type: CA echo doppler color flow Study Info Indications I51.7 - Cardiomegaly Complete two-dimensional, color flow and Doppler transthoracic echocardiogram is performed. Strain analysis performed. Summary 1. Complete two-dimensional, color flow and Doppler transthoracic echocardiogram is performed. 2. Normal left ventricular size with mild concentric hypertrophy. Left ventricular systolic function at lower end of normal, calculated 50%, visually 50-55%. No segmental wall motion abnormalities. Global longitudinal strain is also mildly diminished at -15%. Normal diastolic function. 3. diastolic function. 4. Left atrial chamber dimension is mildly enlarged. 5. No significant valve disease. 6. Normal sinus rhythm. Left Ventricle Left ventricular chamber dimension is normal. Left ventricular systolic function is normal, estimated at 50-55%. There is mildly increased left ventricular wall thickness. Left ventricular septal wall motion is normal. The left ventricular diastolic function is normal. Global longitudinal strain is mildly elevated at -15 %. Right Ventricle Right ventricular chamber dimension is normal. Right ventricular systolic function is normal. Left Atria Left atrial chamber dimension is mildly enlarged. Right Atria Right atrial chamber dimension is normal. Aortic Valve The aortic valve is trileaflet. There is no aortic valve sclerosis. There is no aortic valve stenosis. There is no aortic valve regurgitation. Pulmonic Valve The pulmonic valve is normal. There is no pulmonic valve stenosis. There is no pulmonic regurgitation. Mitral Valve The mitral valve has normal leaflets. There is no mitral valve stenosis. There is trace mitral valve regurgitation. Tricuspid Valve The tricuspid valve leaflets are normal. There is no significant tricuspid valve stenosis. There is trace tricuspid valve regurgitation. No pulmonary hypertension, estimated pulmonary arterial systolic pressure is Empty. Pericardium/Pleural The pericardium appears normal. There is no pericardial effusion. Inferior Vena Cava Normal inferior vena cava with >50% collapse upon inspiration consistent with Empty right atrial pressure, Empty. Aorta The aortic root size at the sinus of Valsalva is normal. The prox ascending aorta size is normal. Left Ventricular Outflow Tract Name Value Normal LVOT 2D LVOT Diameter 2.1 cm LVOT Doppler LVOT Peak Gradient 4 mmHg LVOT Mean Gradient 2 mmHg LVOT VTI 16 cm LVOT VTI/AV VTI Ratio 0.8
[2022-06-01 04:53] VITALS: BP 112/66; PULSE 66; RESP 16; TEMP 36.4; O2SAT 95
[2022-06-01 05:24] LABS: Hematocrit 40.3 % (42.0-52.0); Hemoglobin 13.7 g/dL (14.0-18.0); Mean Corpuscular Hemoglobin 28.8 pg (26-34); Mean Corpuscular Volume 84.8 fl (80-100); Mean Platelet Volume 9.6 fl (7.4-10.4); Platelet Count Result 216 k/mm3 (150-375); Red Blood Count 4.75 M/mm3 (4.6-6.20); Red Cell Distribution Width 12.8 % (11.5-14.5); White Blood Count 8.9 K/mm3 (4.5-10.0)
[2022-06-01 05:36] LABS: Partial Thromboplastin Time 72.6 SECONDS (22.3-36.8)
[2022-06-01 05:37] LABS: Anion Gap 4 mmol/L (8-16); Blood Urea Nitrogen 14 mg/dL (9-20); Calcium 8.8 mg/dL (8.4-10.2); Carbon Dioxide 32 mmol/L (22-30); Chloride 101 mmol/L (98-107); Estimated CRCL calculation 60 ml/min; Estimated Glomerular Filt Rate > 60; Glucose 81 mg/dL (65-110); Lactic Acid Reflex 0.8 mmol/L (0.7-2.0); Potassium 3.9 mmol/L (3.4-5.0); Sodium 137 mmol/L (137-145)
[2022-06-01] MEDS: PANTOPRAZOLE SODIUM IV 40 MG VIAL IV PUSH (08:18)
[2022-06-01] MEDS: THERAPEUTIC MULTIVITAMINS/MINERALS TAB (*BKC) 1 TABLET PO (08:18)
--- NOTE | 2022-06-01 09:21 | PM.IMPN ---
Progress Note: A&P Assessment and Plan (1) Superior mesenteric vein thrombosis: Code(s): K55.069 - Acute infarction of intestine, part and extent unspecified Status: Acute Assessment and Plan: Precipitating etiology is not clear. It is possible that he has a hereditary hypercoagulable disorder given history of unprovoked left leg DVT though he has no known family history of such. He possibly had COVID last month though he was negative for SARS-CoV-2 by PCR today. There is no other pathology in the abdomen to suggest another etiology. Malignancy screening as above was negative. At this time he has been started on a heparin drip and he has been accepted in transfer to [facility] though they do not anticipate having a bed for many days. The ED physician spoke consulted with Dr. Chad Lima, vascular surgeon, and he does not feel there would be any indication for intervention and recommends heparin drip and conservative monitoring. While there is some evidence of venous bowel ischemia on imaging, he has not had any bloody stools, his vital signs are stable, and lactic acid level is well within normal limits. Dr. Badillo (general surgery) has agreed to consult on the patient awaiting transfer and his input is appreciated. 05/31: Continue heparin drip, will advance diet as tolerated since all symptoms are resolved, anticipate patient will be able to be transitioned to oral anticoagulation and discharged prior to transfer being completed, will need outpatient hypercoagulable workup per Hematology 06/01: All symptoms continue to remain resolved on advanced diet, will advance diet further today, anticipate transitioning to oral anticoagulation and discharge today or tomorrow (2) Portal vein thrombosis: Code(s): I81 - Portal vein thrombosis Status: Acute Assessment and Plan: CT of the abdomen also shows a subacute/chronic right portal vein thrombosis. (3) Elevated blood pressure reading without diagnosis of hypertension: Code(s): R03.0 - Elevated blood-pressure reading, without diagnosis of hypertension Status: Acute Assessment and Plan: Initially elevated on arrival, possibly due to pain as his blood pressures have improved. Continue to monitor closely and initiate antihypertensives depending on how he trends. 05/31: Blood pressure stable (4) Mild cardiomegaly: Code(s): I51.7 - Cardiomegaly Status: Acute Assessment and Plan: Noted on CT scan. Echocardiogram ordered for a.m. 05/31: Echo report pending 06/01: Echo showed an EF of 50-55%, no diastolic dysfunction, no valvular dysfunction, some mild LVH Plan DVT prophylaxis with heparin drip add PPI daily for GI prophylaxis full code Subjective Date/time seen: 06/01/22 09:21 Interval history: Patient up to chair, working on his laptop, asymptomatic, eager to go home. Only ate crackers for dinner and is hopeful for more food today and a transition to oral anticoagulation so he can go home later today or tomorrow. ? No overnight events noted.? No chest pain or shortness of breath.? No nausea, vomiting or diarrhea.? No fevers or chills. Review of Systems Review of Systems: ? 12 point review of systems was assessed and was negative except as noted in the HPI Exam Narrative: General:??No acute distress, alert and oriented per baseline HEENT:? Atraumatic, normocephalic, mucous membranes moist CV:? Regular rate and rhythm, S1, S2 Lungs:? Clear to auscultation bilaterally, no rales or crackles noted, no wheezes, good air entry Abdomen:? Soft, nontender, nondistended Extremities:? Normal to inspection Skin:? No rashes noted, no lesions or wounds seen Psych:? Euthymic, normal affect Objective Data Vital Signs Vital Signs: Vital Signs - 24 hr 05/31/22 14:45 05/31/22 20:16 06/01/22 04:53 Temperature 98.7 F 97.6 F 97.6 F Pulse Rate 68 69 66 Respiratory Rate 18 14 16 Blood
[2022-06-01] MEDS: HEPARIN SOD/D5W 100 UNITS/ML 25,000 UNITS/250 ML BAG 12 UNITS IV CONT (10:55)
[2022-06-01 14:00] VITALS: BP 130/72; PULSE 90; RESP 16; TEMP 36; O2SAT 99
--- NOTE | 2022-06-01 14:19 | PM.PNGS ---
Progress Note: A&P Assessment and Plan (1) Superior mesenteric vein thrombosis: Code(s): K55.069 - Acute infarction of intestine, part and extent unspecified Status: Acute Assessment and Plan: Patient continues to improve. WBC normalized and lactic acid normal. He is hemodynamically stable, no peritoneal signs. Okay to advance his diet as tolerated. Transitioning to oral anticoagulation this evening. We will sign off at this time. Okay to discharge from our standpoint once medically stable. Call with any surgical concerns. (2) Portal vein thrombosis: Code(s): I81 - Portal vein thrombosis Status: Acute (3) Incarcerated umbilical hernia: Code(s): K42.0 - Umbilical hernia with obstruction, without gangrene Status: Acute Assessment and Plan: May follow-up in the office as an outpatient to discuss options for elective repair. (4) Generalized abdominal pain: Code(s): R10.84 - Generalized abdominal pain Status: Acute (5) History of deep venous thrombosis (DVT) of distal vein of left lower extremity: Code(s): Z86.718 - Personal history of other venous thrombosis and embolism Status: Acute Plan I have discussed the patient's case and plan of care with Dr. Paiz. Subjective Subjective Date/Time Seen: 06/01/22 13:19 Patient reports: no new complaints, feels better, pain is less, tolerating liquids well, flatus, no bowel movement and afebrile Interval history: Chart reviewed. Patient seen and examined. Reports feeling better daily. He denies having any abdominal pain, nausea, or vomiting. Has not had a BM but is passing lots of gas. Tolerated full liquids for breakfast and a low fiber diet for lunch. Review of Systems Review of Systems: All systems reviewed & are unremarkable except as noted in HPI and below Constitutional: Constitutional: Denies chills and Denies fever(s) Exam Const: General: no acute distress and alert Orientation/consciousness: patient oriented x3 GI: Inspection: normal to inspection and non-distended GI Palp: Yes Soft to palpation, Yes Tenderness to palpation present (GI) (very mild TTP in LUQ and periumbilical, reportedly improved), No Guarding due to palpation present (GI), Yes Hernia present (mildly tender supraumbilical hernia) and No Rebound tenderness present Auscultation: normal bowel sounds Extrem: General: normal to inspection Objective Data Vital Signs Vital Signs: Vital Signs - 24 hr 05/31/22 14:45 05/31/22 20:16 06/01/22 04:53 Temperature 98.7 F 97.6 F 97.6 F Pulse Rate 68 69 66 Respiratory Rate 18 14 16 Blood Pressure 118/66 121/77 112/66 Pulse Oximetry 96 97 95 Intake/Output Intake/Output: Intake & Output 05/29/22 05/30/22 05/31/22 06/01/22 23:59 23:59 23:59 23:59 Intake Total 1100 1250 2570 1140 Balance 1100 1250 2570 1140 Meds/Results Medications: Active Medications Generic Name Dose Route Start Last Admin Trade Name Freq PRN Reason Stop Dose Admin Apixaban 10 mg 06/01/22 21:00 Apixaban 5 Mg Tablet PO Q12HR [facility] Heparin Sodium (Porcine) 5,500 units 05/29/22 22:49 05/30/22 00:08 Heparin Sodium 5,000 Units/Ml Vial IV PUSH 5,500 units PRN PRN Administration aPTT less than 55 seconds Heparin Sodium (Porcine) 3,000 units 05/29/22 22:49 05/30/22 15:09 Heparin Sodium 5,000 Units/Ml Vial IV PUSH 3,000 units PRN PRN Administration aPTT 55 - 70 seconds Heparin Sodium/Dextrose 25,000 units in 250 mls @ 12 mls/hr 05/29/22 22:50 06/01/22 10:55 Heparin Sodium/D5w 100 Units/Ml IV CONT 06/01/22 21:00 1,200 units/hr .[id number] [place] 12 mls/hr Administration Protocol 1,200 UNITS/HR Morphine Sulfate 4 mg 05/30/22 16:18 05/30/22 21:16 Morphine Sulfate (*Crx) 4 Mg/Ml Inj IV PUSH 4 mg Q2H PRN Administration Pain Rated 7-10 Multivitamins/Calcium 1 tablet 06/01/22 09:00 06/01/22 08:18 Therapeutic Multivitamins/
[2022-06-01] MEDS: MORPHINE SULFATE (*CRX) 4 MG/ML INJ IV PUSH (17:41)
[2022-06-01 19:18] VITALS: BP 129/76; PULSE 66; RESP 17; TEMP 36.8; O2SAT 96
[2022-06-01] MEDS: APIXABAN 5 MG TABLET 10 MG PO (19:59)
[2022-06-02 03:13] VITALS: BP 120/74; PULSE 63; RESP 18; TEMP 36.6; O2SAT 94
[2022-06-02 05:41] LABS: Partial Thromboplastin Time 36.1 SECONDS (22.3-36.8)
[2022-06-02 08:00] VITALS: PULSE 64; RESP 18; O2SAT 95
[2022-06-02] MEDS: THERAPEUTIC MULTIVITAMINS/MINERALS TAB (*BKC) 1 TABLET PO (08:47)
[2022-06-02] MEDS: PANTOPRAZOLE SODIUM IV 40 MG VIAL IV PUSH (08:47)
[2022-06-02] MEDS: APIXABAN 5 MG TABLET 10 MG PO ×2 (08:47→20:45)
--- NOTE | 2022-06-02 13:11 | PM.IMPN ---
Progress Note: A&P Assessment and Plan (1) Superior mesenteric vein thrombosis: Code(s): K55.069 - Acute infarction of intestine, part and extent unspecified Status: Acute Assessment and Plan: Precipitating etiology is not clear. It is possible that he has a hereditary hypercoagulable disorder given history of unprovoked left leg DVT though he has no known family history of such. He possibly had COVID last month though he was negative for SARS-CoV-2 by PCR today. There is no other pathology in the abdomen to suggest another etiology. Malignancy screening as above was negative. At this time he has been started on a heparin drip and he has been accepted in transfer to [facility] though they do not anticipate having a bed for many days. The ED physician spoke consulted with Dr. Chad Lima, vascular surgeon, and he does not feel there would be any indication for intervention and recommends heparin drip and conservative monitoring. While there is some evidence of venous bowel ischemia on imaging, he has not had any bloody stools, his vital signs are stable, and lactic acid level is well within normal limits. Dr. Badillo (general surgery) has agreed to consult on the patient awaiting transfer and his input is appreciated. 05/31: Continue heparin drip, will advance diet as tolerated since all symptoms are resolved, anticipate patient will be able to be transitioned to oral anticoagulation and discharged prior to transfer being completed, will need outpatient hypercoagulable workup per Hematology 06/01: All symptoms continue to remain resolved on advanced diet, will advance diet further today, anticipate transitioning to oral anticoagulation and discharge today or tomorrow 06/02: Patient had pain after dinner last evening, concerning for ischemia, he had continued pain after eating less for breakfast. Lactic acid level pending, consult back out to the vascular surgery team pending. Patient remains on the waiting list for a bed. (2) Portal vein thrombosis: Code(s): I81 - Portal vein thrombosis Status: Acute Assessment and Plan: CT of the abdomen also shows a subacute/chronic right portal vein thrombosis. (3) Elevated blood pressure reading without diagnosis of hypertension: Code(s): R03.0 - Elevated blood-pressure reading, without diagnosis of hypertension Status: Acute Assessment and Plan: Initially elevated on arrival, possibly due to pain as his blood pressures have improved. Continue to monitor closely and initiate antihypertensives depending on how he trends. 05/31: Blood pressure stable (4) Mild cardiomegaly: Code(s): I51.7 - Cardiomegaly Status: Acute Assessment and Plan: Noted on CT scan. Echocardiogram ordered for a.m. 05/31: Echo report pending 06/01: Echo showed an EF of 50-55%, no diastolic dysfunction, no valvular dysfunction, some mild LVH Plan DVT prophylaxis with heparin drip add PPI daily for GI prophylaxis full code Subjective Date/time seen: 06/02/22 13:11 Interval history: Patient had significant pain after eating regular food for dinner last evening. He states he had more pain this morning when he tried eat less for breakfast. ?No chest pain or shortness of breath.? No nausea, vomiting or diarrhea.? No fevers or chills. Review of Systems Review of Systems: ? 12 point review of systems was assessed and was negative except as noted in the HPI Exam Narrative: General:??No acute distress, alert and oriented per baseline HEENT:? Atraumatic, normocephalic, mucous membranes moist CV:? Regular rate and rhythm, S1, S2 Lungs:? Clear to auscultation bilaterally, no rales or crackles noted, no wheezes, good air entry Abdomen:? Soft, mild tenderness to palpation Extremities:? Normal to inspection Skin:? No rashes noted, no lesions or wounds seen Psych:? Euthymic, normal affect Objective Data Vital Sign
[2022-06-02 15:10] VITALS: BP 129/69; PULSE 64; RESP 18; TEMP 36.7; O2SAT 95
[2022-06-02 19:56] VITALS: BP 124/71; PULSE 63; RESP 18; TEMP 36.6; O2SAT 97
[2022-06-02 20:44] LABS: Basophils Absolute Auto 0.1 K/mm3 (0.0-0.1); Eosinophils Absolute Auto 0.4 K/mm3 (0-0.3); Eosinophils Percent Auto 5.6 % (0-4.4); Hematocrit 38.5 % (42.0-52.0); Hemoglobin 13.4 g/dL (14.0-18.0); Immature Granulocyte Absolute 0.03 K/mm3 (0.00-0.031); Immature Granulocyte Percent A 0.4 % (0-0.5); Lymphocytes Absolute Auto 1.97 K/mm3 (0.9-3.2); Lymphocytes Percent Auto 28.9 % (18.3-44.2); Mean Corpuscular HGB Conc 34.8 g/dl (32-36); Mean Corpuscular Hemoglobin 28.6 pg (26-34); Mean Corpuscular Volume 82.3 fl (80-100); Mean Platelet Volume 9.1 fl (7.4-10.4); Monocytes Absolute Auto 0.6 K/mm3 (0.1-0.6); Monocytes Percent Auto 8.2 % (2.6-8.5); Neutrophils Absolute Auto 3.8 K/mm3 (1.3-6.7); Neutrophils Percent Auto 55.9 % (45.5-73.1); Platelet Count Result 283 k/mm3 (150-375); Red Blood Count 4.68 M/mm3 (4.6-6.20); Red Cell Distribution Width 12.6 % (11.5-14.5); White Blood Count 6.8 K/mm3 (4.5-10.0)
[2022-06-02 20:58] LABS: INR 1.3; Prothrombin Time 15.5 Seconds (11.1-14.7)
[2022-06-02 20:59] LABS: Partial Thromboplastin Time 35.1 SECONDS (22.3-36.8)
[2022-06-03 04:35] VITALS: BP 120/69; PULSE 62; RESP 18; TEMP 35.7; O2SAT 96
[2022-06-03 05:38] LABS: Partial Thromboplastin Time 36.5 SECONDS (22.3-36.8)
[2022-06-03] MEDS: THERAPEUTIC MULTIVITAMINS/MINERALS TAB (*BKC) 1 TABLET PO (08:34)
[2022-06-03] MEDS: APIXABAN 5 MG TABLET 10 MG PO (08:34)
--- NOTE | 2022-06-03 09:21 | PM.DS ---
DS: Admitting Diagnosis Discharge Date June 03, 2022 Admitting Diagnosis abdominal pain DS: Discharge Diagnosis Discharge Diagnosis (1) Superior mesenteric vein thrombosis: Code(s): K55.069 - Acute infarction of intestine, part and extent unspecified Status: Acute Assessment and Plan: Precipitating etiology is not clear. It is possible that he has a hereditary hypercoagulable disorder given history of unprovoked left leg DVT though he has no known family history of such. He possibly had COVID last month though he was negative for SARS-CoV-2 by PCR today. There is no other pathology in the abdomen to suggest another etiology. Malignancy screening as above was negative. At this time he has been started on a heparin drip and he has been accepted in transfer to [facility] though they do not anticipate having a bed for many days. The ED physician spoke consulted with Dr. Chad Lima, vascular surgeon, and he does not feel there would be any indication for intervention and recommends heparin drip and conservative monitoring. While there is some evidence of venous bowel ischemia on imaging, he has not had any bloody stools, his vital signs are stable, and lactic acid level is well within normal limits. Dr. Badillo (general surgery) has agreed to consult on the patient awaiting transfer and his input is appreciated. 05/31: Continue heparin drip, will advance diet as tolerated since all symptoms are resolved, anticipate patient will be able to be transitioned to oral anticoagulation and discharged prior to transfer being completed, will need outpatient hypercoagulable workup per Hematology 06/01: All symptoms continue to remain resolved on advanced diet, will advance diet further today, anticipate transitioning to oral anticoagulation and discharge today or tomorrow 06/02: Patient had pain after dinner last evening, concerning for ischemia, he had continued pain after eating less for breakfast. Lactic acid level pending, consult back out to the vascular surgery team pending. Patient remains on the waiting list for a bed. 06/03: Vascular surgery team at [facility] contacted, they again reiterated that there is no intervention necessary. They recommended advancing diet as tolerated and discharged on anticoagulation. (2) Portal vein thrombosis: Code(s): I81 - Portal vein thrombosis Status: Acute Assessment and Plan: CT of the abdomen also shows a subacute/chronic right portal vein thrombosis. (3) Elevated blood pressure reading without diagnosis of hypertension: Code(s): R03.0 - Elevated blood-pressure reading, without diagnosis of hypertension Status: Acute Assessment and Plan: Initially elevated on arrival, possibly due to pain as his blood pressures have improved. Continue to monitor closely and initiate antihypertensives depending on how he trends. 05/31: Blood pressure stable (4) Mild cardiomegaly: Code(s): I51.7 - Cardiomegaly Status: Acute Assessment and Plan: Noted on CT scan. Echocardiogram ordered for a.m. 05/31: Echo report pending 06/01: Echo showed an EF of 50-55%, no diastolic dysfunction, no valvular dysfunction, some mild LVH Plan DVT prophylaxis with heparin drip add PPI daily for GI prophylaxis full code DS: Summary Hospital Course Hospital Course: 57-year-old male with past medical history significant for unprovoked DVT presenting with abdominal pain. He was found to have SMV thrombosis and started on a heparin drip with transfer to [facility]. Vascular surgery was consulted and recommended conservative management. His diet was slowly advanced and he was transitioned to oral anticoagulation. He was discharged in good condition with close outpatient follow-up. Time Spent with Patient Time attestation: Total time spent providing and/or coordinating discharge services: Exam Narrative: Gene
== END 2022-06-03 11:55 | disposition home or self-care (01) | DRG 393 ==
LOC: ANHED 05-30 16:27 → ANH3MEDSUR 05-30 19:31 → ANH2MED 05-30 19:46
PROVIDERS: Emergency Medicine; Physician Assistant; Surgery; Admitting Provider Internal Medicine; Emergency Provider Emergency Medicine; PCP Internal Medicine; Visit Provider Student in an Organized Health Care Education/Training Program
DX: K55.019 Acute (reversible) ischemia of small intestine, extent unspecified (principal); I81 Portal vein thrombosis; K42.0 Umbilical hernia with obstruction, without gangrene; R03.0 Elevated blood-pressure reading, without diagnosis of hypertension; I51.7 Cardiomegaly; Z86.718 Personal history of other venous thrombosis and embolism; Z79.82 Long term (current) use of aspirin; Z20.822 Contact with and (suspected) exposure to COVID-19
CPT/HCPCS: 36415; 74018; 74177; 80048; 80053; 81001; 83605; 83690; 83735; 85025; 85027; 85610; 85730; 93306; 99285; A9270; C9113; C9803; J0131; J1644; J2270; J2405; J7030; Q9967; U0003; U0005